=== PATIENT | male | born 1975 | race Caucasian/White ===

== ENCOUNTER 2017-12-31 20:52 | Emergency (ER) | payer OTHER ==
[~2017-12-31] VITALS: Ht 175.3 cm; Wt 88.5 kg
[2017-12-31] MEDS ORDERED: ZESTRIL10 MG (21:24)
== END 2017-12-31 23:33 | disposition home or self-care (01) ==
LOC: ER 20:52
DX: S61.210A Laceration without foreign body of right index finger without damage to nail, initial encounter (principal); S61.212A Laceration without foreign body of right middle finger without damage to nail, initial encounter; S61.214A Laceration without foreign body of right ring finger without damage to nail, initial encounter; S61.216A Laceration without foreign body of right little finger without damage to nail, initial encounter; S62.631B Displaced fracture of distal phalanx of left index finger, initial encounter for open fracture; S62.633B Displaced fracture of distal phalanx of left middle finger, initial encounter for open fracture; W23.0XXA Caught, crushed, jammed, or pinched between moving objects, initial encounter; Y93.89 Activity, other specified; Y92.015 Private garage of single-family (private) house as the place of occurrence of the external cause; Y99.8 Other external cause status

== ENCOUNTER 2018-12-28 14:51 | Emergency (ER) | payer OTHER ==
[~2018-12-28] VITALS: Ht 172.7 cm; Wt 95.3 kg
[~2018-12-28 14:51] MED LIST: ZESTRIL10 MG
[2018-12-28] MEDS ORDERED: PRINIVIL20 MG PO (15:28)
== END 2018-12-28 19:00 | disposition home or self-care (01) ==
LOC: ER 14:51
DX: M54.5 Low back pain (principal)